=== PATIENT | female | born 1955 | race Two or more races ===

== ENCOUNTER 2017-11-25 07:48 | Day surgery (SDC) | payer MEDICARE, MEDICAID ==
[2017-11-21 11:52] LABS: Basophils # (auto) 0 uL; Eosinophils # (auto) 0.1 uL; Lymphocytes # (auto) 0.8 uL; Monocytes # (auto) 0.5 uL; Neutrophils # (auto) 2.6 uL
[2017-11-21 11:54] LABS: Basophils % (auto) 0.8 % (0.0-2.0); Eosinophils % (auto) 1.3 % (0.0-7.0); Hematocrit 34.8 % (36.0-46.0); Hemoglobin 10.6 g/dL (12.2-16.2); Lymphocytes % (auto) 19.9 % (10.0-50.0); Mean Corpuscular Hemoglobin 21.2 pg (28.0-32.0); Mean Corpuscular Hgb Conc. 30.5 g/dL (32.0-36.0); Mean Corpuscular Volume 69.5 fL (80.0-100.0); Monocytes % (auto) 11.9 % (0.0-12.0); Neutrophils % (auto) 66.1 % (37.0-80.0); Nucleated Red Blood Cells % 0.2 %; Platelet Count (auto) 144 10^3/uL (140-450)
[2017-11-21 11:56] LABS: Red Cell Distribution Width 26.4 % (11.8-14.3)
[2017-11-21 11:57] LABS: Urine Blood Negative /uL (Negative)
[2017-11-21 12:02] LABS: INR 1.19 (0.9-1.15)
[2017-11-21 12:31] LABS: Albumin 2.5 g/dL (3.4-5.0); Calcium 8.5 mg/dL (8.5-10.1); Potassium 3.5 mmol/L (3.5-5.1)
[2017-11-21 12:34] LABS: Total Protein 8.1 g/dL (6.4-8.2)
[~2017-11-25] VITALS: Ht 165.1 cm; Wt 118.8 kg
[~2017-11-25 07:48] MED LIST: FURO40TA PO; LACT10SO66 PO; LEVO150T10 PO; RIFA550T PO; SPIR100T21 PO
[2017-11-25] MEDS ORDERED: LIDOCAINE 1% HCL (LOCAL ANESTH.) INJ 20ML MDV ONE (09:02)
[2017-11-25] MEDS ORDERED: SUCCINYLCHOLINE CHLORIDE 20 MG/ML 10ML VIAL IV ONE (09:03)
[2017-11-25] MEDS ORDERED: MIDAZOLAM HCL 1MG/1ML-2 ML VIAL ONE ×2 (09:06→09:12)
[2017-11-25] MEDS ORDERED: PROPOFOL 10 MG/ML 20 ML IV ONE (09:08)
[2017-11-25] MEDS ORDERED: ONDANSETRON HCL 4 MG/2 ML VIAL IV ONE (09:45)
[2017-11-25] MEDS ORDERED: HYDROmorphone HCL 2 MG/ML VL IV PRN (09:45)
[2017-11-25] MEDS ORDERED: NALOXONE HCL 0.4 MG/ML VIAL IV PRN (09:45)
[2017-11-25 10:10] VITALS: BP 123/71
== END 2017-11-25 10:15 | disposition home or self-care (01) ==
LOC: GI 07:48
PROVIDERS: ATTEND Internal Medicine Gastroenterology
DX: I85.10 Secondary esophageal varices without bleeding (principal); K74.60 Unspecified cirrhosis of liver; K76.6 Portal hypertension; K31.89 Other diseases of stomach and duodenum; I83.90 Asymptomatic varicose veins of unspecified lower extremity; Z88.0 Allergy status to penicillin; E66.01 Morbid (severe) obesity due to excess calories; Z68.41 Body mass index [BMI] 40.0-44.9, adult; I50.9 Heart failure, unspecified; J45.909 Unspecified asthma, uncomplicated; G47.30 Sleep apnea, unspecified; Z87.891 Personal history of nicotine dependence; G47.33 Obstructive sleep apnea (adult) (pediatric); E03.9 Hypothyroidism, unspecified
CPT/HCPCS: 36415; 43244; 80053; 81003; 85025; 85610; J0330; J2001; J2250; J2704

== ENCOUNTER 2018-03-21 09:11 | Day surgery (SDC) | payer MEDICARE, MEDICAID ==
[2018-03-18 12:36] LABS: Basophils # (auto) 0 uL; Eosinophils # (auto) 0.1 uL; Neutrophils # (auto) 2.3 uL; Nucleated Red Blood Cells % 0.2 %; White Blood Cell 3.8 10^3/uL (4.4-10.8)
[2018-03-18 12:38] LABS: Eosinophils % (auto) 1.8 % (0.0-7.0); Hematocrit 35.6 % (36.0-46.0); Hemoglobin 11.7 g/dL (12.2-16.2); Lymphocytes % (auto) 25.8 % (10.0-50.0); Mean Corpuscular Hemoglobin 25.9 pg (28.0-32.0); Mean Corpuscular Volume 78.5 fL (80.0-100.0); Monocytes # (auto) 0.4 uL; Monocytes % (auto) 11.1 % (0.0-12.0); Neutrophils % (auto) 60.3 % (37.0-80.0); Platelet Count (auto) 228 10^3/uL (140-450); Red Blood Cells 4.54 10^6/uL (4.0-5.20); Red Cell Distribution Width 22.7 % (11.8-14.3)
[2018-03-18 12:55] LABS: INR 1.17 (0.9-1.15); Partial Thromboplastin Time 30.8 sec (23.78-33.04); Prothrombin Time 12.4 sec (9.27-12.13)
[~2018-03-21] VITALS: Ht 165.1 cm; Wt 108.9 kg
[~2018-03-21 09:11] MED LIST changes: -RIFA550T PO
[2018-03-21] MEDS ORDERED: SODIUM CHLORIDE LOCK 10 ML ONE (10:03)
[2018-03-21] MEDS ORDERED: LIDOCAINE VISCOUS 2% 15ML UD ONE (10:03)
[2018-03-21] MEDS ORDERED: diphenhdrAMINE HCL 50 MG/1 ML VL ONE (10:04)
[2018-03-21] MEDS: fentaNYL CITRATE 100 MCG/2 ML VL ONE ×2 (10:05→10:09)
[2018-03-21] MEDS: MIDAZOLAM HCL 5 MG/ML-1ML VIAL ONE ×2 (10:05→10:09)
[2018-03-21 10:48] VITALS: BP 111/71
== END 2018-03-21 10:54 | disposition home or self-care (01) ==
LOC: GI 09:11
PROVIDERS: ATTEND Internal Medicine Gastroenterology
DX: K76.6 Portal hypertension (principal); K31.89 Other diseases of stomach and duodenum; K74.60 Unspecified cirrhosis of liver; I85.10 Secondary esophageal varices without bleeding; Z88.1 Allergy status to other antibiotic agents; Z88.0 Allergy status to penicillin; E66.9 Obesity, unspecified; Z68.39 Body mass index [BMI] 39.0-39.9, adult; I50.9 Heart failure, unspecified; I82.409 Acute embolism and thrombosis of unspecified deep veins of unspecified lower extremity; J45.909 Unspecified asthma, uncomplicated; G47.30 Sleep apnea, unspecified; Z79.899 Other long term (current) drug therapy
CPT/HCPCS: 36415; 85025; 85610; 85730; J1200; J2250; J3010; 43235; G0500

== ENCOUNTER → 2018-11-03 | Day surgery (SDC) | payer OTHER, MEDICAID ==
[~2018-11-03] MED LIST changes: +LIDOCAINE VISCOUS 2% 15ML UD ONE; +SODIUM CHLORIDE LOCK 10 ML ONE; -SPIR100T21 PO; +SPIR100T4 PO; +diphenhdrAMINE HCL 50 MG/1 ML VL ONE
[2018-11-03] MEDS: MIDAZOLAM HCL 5 MG/ML-1ML VIAL ONE ×2 (09:47→09:50)
[2018-11-03] MEDS: fentaNYL CITRATE 100 MCG/2 ML VL ONE ×2 (09:47→09:50)
[2018-11-03 10:27] VITALS: BP 109/53
== END | disposition home or self-care (01) ==
LOC: GI 08:08
PROVIDERS: ATTEND Internal Medicine Gastroenterology
DX: K74.60 Unspecified cirrhosis of liver (principal); I85.10 Secondary esophageal varices without bleeding; K26.9 Duodenal ulcer, unspecified as acute or chronic, without hemorrhage or perforation; K29.80 Duodenitis without bleeding; K76.6 Portal hypertension; K31.89 Other diseases of stomach and duodenum; I50.9 Heart failure, unspecified; I82.409 Acute embolism and thrombosis of unspecified deep veins of unspecified lower extremity; J18.9 Pneumonia, unspecified organism; G47.30 Sleep apnea, unspecified; Z88.0 Allergy status to penicillin; Z88.1 Allergy status to other antibiotic agents
CPT/HCPCS: 43244; A6257; J1200; J2250; J3010; J7030